=== PATIENT | female | born 1965 | race Caucasian/White ===

== ENCOUNTER → 2016-10-22 | Outpatient (CLI) | payer BC ==
[~2016-10-22] MED LIST: 00186-0370-20 IH; ASPIRIN E.C. 8181 MG; CLARITIN 1010 MG/TAB; CLARITIN 1010 MG/TAB PO; COMBIVENT INH14.7 GM IH; DALIRESP500 MCG; INDERAL 20MG20 MG PO; KLONOPIN 1MG1 MG PO; LAMICTAL 25MG T25 MG; MOBIC15 MG PO; NORCO 325 MG-51 TAB PO; PRAVACHOL 40MG40 MG PO; PREDNISONE20 MG PO; PREMARIN 1.251.25 MG PO; PRINZIDE 12.5 M1 TA1 PO; PROTONIX 40MG T40 MG PO; QUESTRAN4 GM/9 GM PO; SINGULAIR 110 MG/TAB; TUDORZA IH; VALTREX1 GM PO; VOLTAREN 75 DR75 MG; ZOFRAN 4MG T4 MG/TAB PO; ZYRTEC 10MG10 MG PO
== END ==
LOC: MHCPAIN 11:16
DX: G89.29 Other chronic pain (principal); M54.12 Radiculopathy, cervical region; M47.812 Spondylosis without myelopathy or radiculopathy, cervical region; M54.81 Occipital neuralgia; R51 Headache; F17.210 Nicotine dependence, cigarettes, uncomplicated
CPT/HCPCS: G0463

== ENCOUNTER → 2016-10-31 | Outpatient (CLI) | payer BC | LOC: MHCPAIN 08:03 | DX: M50.90 Cervical disc disorder, unspecified, unspecified cervical region (principal); F41.9 Anxiety disorder, unspecified | CPT/HCPCS: G0463; J1100; Q9967 ==

== ENCOUNTER → 2016-11-07 | Outpatient (CLI) | payer BC | LOC: MHCPAIN 08:42 | DX: M50.323 Other cervical disc degeneration at C6-C7 level (principal) | CPT/HCPCS: J1100; Q9967 ==

== ENCOUNTER → 2016-12-09 | Outpatient (CLI) | payer BC | LOC: MHCPAIN 10:05 | DX: G89.29 Other chronic pain (principal); M50.90 Cervical disc disorder, unspecified, unspecified cervical region; M54.12 Radiculopathy, cervical region; R51 Headache | CPT/HCPCS: G0463 ==

== ENCOUNTER → 2017-10-21 | Outpatient (CLI) | payer BC | LOC: MC.RAD 09:39 | DX: Z12.31 Encounter for screening mammogram for malignant neoplasm of breast (principal); D24.1 Benign neoplasm of right breast; Z98.890 Other specified postprocedural states ==

== ENCOUNTER → 2018-04-29 | Outpatient (CLI) | payer BC | LOC: COL.RAD 07:57 | DX: R14.3 Flatulence (principal); R19.7 Diarrhea, unspecified; R11.2 Nausea with vomiting, unspecified | CPT/HCPCS: A9541 ==

== ENCOUNTER 2018-09-13 11:04 | Emergency (ER) | payer BC ==
[~2018-09-13] VITALS: Ht 162.6 cm; Wt 85.5 kg
[2018-09-13 11:21] VITALS: TEMP 98
[2018-09-13] MEDS ORDERED: TOPROL XL 25MG25 MG PO (11:45)
[2018-09-13] MEDS ORDERED: PROAIR HFA0.09 MG/AC IH (11:45)
[2018-09-13] MEDS ORDERED: TRELEGY ELLIPT1 EACH IH (11:46)
[2018-09-13 12:00] LABS: BASO % 0.2 % (0.0-2.0); GRAN # 8.7 (1.4-6.5); GRAN % 83.1 % (42.2-75.2); HEMATOCRIT 39.8 % (37.0-47.0); HEMOGLOBIN 13.2 g/dl (12.5-16.0); LYMPH % 9.2 % (20.0-51.0); MEAN CELL VOLUME 96 fl (80.0-100.0); MEAN CORPUSCULAR HEMOGLOBIN 32 pg (27.0-31.0); MEAN CORPUSCULAR HGB CONC 33 g/dl (33.0-37.0); MEAN PLATELET VOLUME 9.9 fl (7.4-10.4); MONO # 0.8 (0.1-0.6); MONO % 7.1 % (1.7-9.3); PLATELET COUNT 219 K/mm3 (130-400); RED BLOOD COUNT 4.14 M/mm3 (4.10-5.30); REDCELL DISTRIBUTION WIDTH-CV 14.4 % (11.5-14.5)
[2018-09-13 12:10] LABS: ALBUMIN 3.7 gm/dL (3.5-5.0); BILIRUBIN,TOTAL 0.1 mg/dL (0.0-1.0); CALCIUM 9.4 mg/dL (8.4-10.2); CREATININE, serum 0.74 (0.52-1.25); POTASSIUM 3.8 mmol/L (3.4-5.0)
[2018-09-13] MEDS ORDERED: PREDNISONE20 MG PO (13:49)
[2018-09-13] MEDS ORDERED: ZITHROMAX Z PA250 MG PO (13:49)
[2018-09-13 14:29] VITALS: BP 106/54; PULSE 99
== END 2018-09-13 14:30 | disposition home or self-care (01) ==
LOC: COL.ER 11:04
PROVIDERS: Family Medicine
DX: J44.1 Chronic obstructive pulmonary disease with (acute) exacerbation (principal); I10 Essential (primary) hypertension; Z87.891 Personal history of nicotine dependence; Z79.51 Long term (current) use of inhaled steroids
CPT/HCPCS: J2930

== ENCOUNTER → 2019-02-12 | Outpatient (CLI) | payer BC ==
[~2019-02-12] MED LIST changes: +PROAIR HFA0.09 MG/AC IH; +TOPROL XL 25MG25 MG PO; +TRELEGY ELLIPT1 EACH IH; +ZITHROMAX Z PA250 MG PO
== END ==
LOC: MC.RAD 14:26
DX: Z12.31 Encounter for screening mammogram for malignant neoplasm of breast (principal)

== ENCOUNTER 2019-11-09 21:40 | Emergency (ER) | payer BC ==
[~2019-11-09] VITALS: Ht 162.6 cm; Wt 85.5 kg
[2019-11-09 21:44] VITALS: BP 127/87; TEMP 97.3
[2019-11-09 22:28] LABS: BASO % 0.4 % (0.0-2.0); EOS % 0.2 % (0-4.0); GRAN # 7.4 (1.4-6.5); GRAN % 74.5 % (42.2-75.2); HEMATOCRIT 42.7 % (37.0-47.0); HEMOGLOBIN 14.3 g/dl (12.5-16.0); LYMPH # 1.9 (1.2-3.4); LYMPH % 19.4 % (20.0-51.0); MEAN CELL VOLUME 94 fl (80.0-100.0); MEAN CORPUSCULAR HEMOGLOBIN 32 pg (27.0-31.0); MEAN CORPUSCULAR HGB CONC 34 g/dl (33.0-37.0); MEAN PLATELET VOLUME 9.6 fl (7.4-10.4); MONO # 0.5 (0.1-0.6); MONO % 4.9 % (1.7-9.3); PLATELET COUNT 310 K/mm3 (130-400); RED BLOOD COUNT 4.54 M/mm3 (4.10-5.30); REDCELL DISTRIBUTION WIDTH-CV 14.7 % (11.5-14.5)
[2019-11-09 22:40] LABS: ALBUMIN 4.2 gm/dL (3.5-5.0); BILIRUBIN,TOTAL 0.3 mg/dL (0.0-1.0); CALCIUM 9.4 mg/dL (8.4-10.2); CREATININE, serum 0.72 (0.52-1.25); INR 0.9 (0.8-3.0); POTASSIUM 4.3 mmol/L (3.4-5.0); PROTHROMBIN TIME 10.5 SECONDS (9.7-12.8); TOTAL PROTEIN 7.6 gm/dL (6.4-8.2)
[2019-11-09 22:50] LABS: TROPONIN-I 0.013 ng/mL (0.000-0.035)
[2019-11-09 22:52] LABS: D-DIMER < 200.00 ng/mLDDu (200-230)
[2019-11-10 02:24] VITALS: PULSE 91
== END 2019-11-10 02:30 | disposition home or self-care (01) ==
LOC: COL.ER 21:40
PROVIDERS: Emergency Medicine
DX: R07.89 Other chest pain (principal); J44.9 Chronic obstructive pulmonary disease, unspecified; K21.9 Gastro-esophageal reflux disease without esophagitis; I10 Essential (primary) hypertension; E78.5 Hyperlipidemia, unspecified; F17.210 Nicotine dependence, cigarettes, uncomplicated; Z90.49 Acquired absence of other specified parts of digestive tract; Z90.710 Acquired absence of both cervix and uterus; Z79.52 Long term (current) use of systemic steroids; Z79.51 Long term (current) use of inhaled steroids; Z79.82 Long term (current) use of aspirin
CPT/HCPCS: C9113; J7030

== ENCOUNTER 2019-12-03 11:07 | Emergency (ER) | payer BC ==
[~2019-12-03] VITALS: Ht 160 cm; Wt 86.4 kg
[~2019-12-03 11:07] MED LIST changes: -ASPIRIN E.C. 8181 MG; +ASPIRIN E.C. 8181 MG PO; -CLARITIN 1010 MG/TAB; -DALIRESP500 MCG; +DALIRESP500 MCG PO; +GNC L-ARGININE500 MG PO; +K-DUR20 MEQ PO; +MAG-OX 400400 MG/TAB PO; +NITROSTAT0.4 MG/TAB SL; -SINGULAIR 110 MG/TAB; +SINGULAIR 110 MG/TAB PO
[2019-12-03 11:12] VITALS: TEMP 98.2
[2019-12-03 12:15] LABS: BASO % 0.4 % (0.0-2.0); EOS # 0.1 (0.0-0.7); EOS % 1.6 % (0-4.0); GRAN # 4.8 (1.4-6.5); GRAN % 59.8 % (42.2-75.2); HEMATOCRIT 40.7 % (37.0-47.0); HEMOGLOBIN 13.4 g/dl (12.5-16.0); LYMPH # 2.3 (1.2-3.4); LYMPH % 29.2 % (20.0-51.0); MEAN CELL VOLUME 94 fl (80.0-100.0); MEAN CORPUSCULAR HEMOGLOBIN 31 pg (27.0-31.0); MEAN CORPUSCULAR HGB CONC 33 g/dl (33.0-37.0); MEAN PLATELET VOLUME 9.8 fl (7.4-10.4); MONO # 0.7 (0.1-0.6); MONO % 8.4 % (1.7-9.3); PLATELET COUNT 296 K/mm3 (130-400); RED BLOOD COUNT 4.34 M/mm3 (4.10-5.30); REDCELL DISTRIBUTION WIDTH-CV 13.7 % (11.5-14.5)
[2019-12-03 12:25] LABS: ALANINE AMINOTRANSFERASE 21 U/L (4-34); ALBUMIN 3.9 gm/dL (3.5-5.0); ALKALINE PHOSPHATASE 93 U/L (50-136); ANION GAP 8 mmol/L (7-16); AST,SGOT 19 U/L (15-37); BILIRUBIN,TOTAL 0.4 mg/dL (0.0-1.0); BLOOD UREA NITROGEN 15 mg/dL (7-17); CARBON DIOXIDE 24 mmol/L (22-30); CHLORIDE 103 mmol/L (98-107); GLUCOSE 110 mg/dL (74-106); POTASSIUM 3.7 mmol/L (3.4-5.0); SODIUM 135 mmol/L (137-145); TOTAL PROTEIN 7.1 gm/dL (6.4-8.2)
[2019-12-03 12:41] LABS: TROPONIN-I < 0.012 ng/mL (0.000-0.035)
[2019-12-03 16:45] VITALS: BP 113/90; PULSE 73
== END 2019-12-03 15:58 | disposition home or self-care (01) ==
LOC: COL.ER 11:07
PROVIDERS: Physician Assistant
DX: I47.1 Supraventricular tachycardia (principal); F41.9 Anxiety disorder, unspecified; R07.89 Other chest pain; I10 Essential (primary) hypertension; K21.9 Gastro-esophageal reflux disease without esophagitis; E78.5 Hyperlipidemia, unspecified; J44.9 Chronic obstructive pulmonary disease, unspecified; Z90.49 Acquired absence of other specified parts of digestive tract; Z95.9 Presence of cardiac and vascular implant and graft, unspecified; Z79.82 Long term (current) use of aspirin; Z79.51 Long term (current) use of inhaled steroids; Z87.891 Personal history of nicotine dependence
CPT/HCPCS: J2060; J2270; J7030

== ENCOUNTER 2020-09-14 08:57 | Emergency (ER) | payer BC ==
[~2020-09-14] VITALS: Ht 162.6 cm; Wt 103.2 kg
[2020-09-14 09:06] VITALS: TEMP 98.2
[2020-09-14 09:35] LABS: BASO # 0.1 (0.0-0.2); BASO % 0.6 % (0.0-2.0); EOS # 0.2 (0.0-0.7); EOS % 2.9 % (0-4.0); GRAN # 4.5 (1.4-6.5); GRAN % 55.9 % (42.2-75.2); HEMATOCRIT 38.3 % (37.0-47.0); HEMOGLOBIN 12.7 g/dl (12.5-16.0); LYMPH # 2.5 (1.2-3.4); LYMPH % 30.6 % (20.0-51.0); MEAN CELL VOLUME 90 fl (80.0-100.0); MEAN CORPUSCULAR HEMOGLOBIN 30 pg (27.0-31.0); MEAN CORPUSCULAR HGB CONC 33 g/dl (33.0-37.0); MEAN PLATELET VOLUME 9.6 fl (7.4-10.4); MONO # 0.8 (0.1-0.6); MONO % 9.4 % (1.7-9.3); PLATELET COUNT 399 K/mm3 (130-400); RED BLOOD COUNT 4.27 M/mm3 (4.10-5.30); REDCELL DISTRIBUTION WIDTH-CV 14.8 % (11.5-14.5)
[2020-09-14 09:46] LABS: ALANINE AMINOTRANSFERASE 25 U/L (4-34); ALBUMIN 4.1 gm/dL (3.5-5.0); ALKALINE PHOSPHATASE 109 U/L (50-136); ANION GAP 11 mmol/L (7-16); AST,SGOT 24 U/L (15-37); BILIRUBIN,TOTAL 0.1 mg/dL (0.0-1.0); BLOOD UREA NITROGEN 9 mg/dL (7-17); CALCIUM 9.3 mg/dL (8.4-10.2); CARBON DIOXIDE 24 mmol/L (22-30); CHLORIDE 99 mmol/L (98-107); CREATININE, serum 0.79 (0.52-1.25); GLUCOSE 113 mg/dL (74-106); POTASSIUM 4.1 mmol/L (3.4-5.0); SODIUM 135 mmol/L (137-145); TOTAL PROTEIN 7.6 gm/dL (6.4-8.2)
[2020-09-14 10:01] LABS: TROPONIN-I < 0.012 ng/mL (0.000-0.035)
[2020-09-14 11:05] LABS: COLLECTION METHOD CLEAN CATCH
[2020-09-14 11:17] LABS: MUCOUS Present /lpf; PH 6 (5-8); SQUAMOUS EPITHELIAL None Seen /hpf; URINE APPEARANCE Clear; URINE BACTERIA Rare /hpf; URINE BILIRUBIN Negative (NEGATIVE); URINE BLOOD Negative (NEGATIVE); URINE COLOR Straw; URINE GLUCOSE Negative (NEGATIVE); URINE KETONE Trace (NEGATIVE); URINE LEUKOCYTE ESTERASE Negative (NEGATIVE); URINE NITRATE Negative (NEGATIVE); URINE PROTEIN(semi-quant) Negative (NEGATIVE); URINE RBC 0-2 /hpf; URINE UROBILINOGEN Negative (NEGATIVE)
[2020-09-14 11:48] VITALS: BP 143/98; PULSE 115
== END 2020-09-14 11:57 | disposition home or self-care (01) ==
LOC: COL.ER 08:57
PROVIDERS: Emergency Medicine
DX: F41.9 Anxiety disorder, unspecified (principal); R20.2 Paresthesia of skin; R00.0 Tachycardia, unspecified; J44.9 Chronic obstructive pulmonary disease, unspecified; I10 Essential (primary) hypertension; E78.5 Hyperlipidemia, unspecified; Z88.0 Allergy status to penicillin; Z88.1 Allergy status to other antibiotic agents; Z87.891 Personal history of nicotine dependence; Z79.899 Other long term (current) drug therapy
CPT/HCPCS: J1885; J2060

== ENCOUNTER → 2020-12-19 | Outpatient (CLI) | payer BC | LOC: COL.RAD 12-13 10:00 | DX: I70.0 Atherosclerosis of aorta (principal); M79.605 Pain in left leg; M79.604 Pain in right leg | CPT/HCPCS: Q9967 ==

== ENCOUNTER → 2021-04-04 | Outpatient (CLI) | payer BC | LOC: MC.RAD 14:12 | DX: Z12.31 Encounter for screening mammogram for malignant neoplasm of breast (principal) ==